=== PATIENT | male | born 1955 | race Caucasian/White ===

== ENCOUNTER 2022-05-25 08:35 | Outpatient (CLI) | payer MEDICARE ==
[2022-05-25] MEDS ORDERED: iohexoL-300 100 ML VIAL ONE (08:52)
[2022-05-25] MEDS: iohexoL-300 100 ML VIAL IVP ONE (09:15)
--- NOTE | 2022-05-25 10:23 | CT Report ---
PROCEDURE: CHEST W INDICATIONS: COUGH CONTRAST:omni 300 80ml TECHNIQUE: After the administration of intravenous contrast, 1 mm axial images were acquired from the pulmonary apices through the posterior costophrenic angles. Axial 5 mm soft tissue kernel reconstructions were performed as well as 8 mm axial MIP and coronal and sagittal 5 mm reformations. For radiation dose reduction, the following was used: automated exposure control, adjustment of mA and/or kV according to patient size. COMPARISON: None. FINDINGS: Image quality: Excellent. Lungs and pleura: There is a mild to moderate emphysematous changes noted throughout both lungs. I se e no evidence for focal lung infiltrate. There are some small 1 to 2 mm calcified and noncalcified pu lmonary nodular densities present on the right. Mediastinum: Heart size is normal. No pericardial effusion. No mediastinal or hilar adenopathy by size criteria. There are some calcified mediastinal lymph nodes suggesting prior granulomatous infect ion. Thoracic aorta and central pulmonary arteries are normal in size. Esophagus is normal in calib er. No hiatal hernia. There are coronary artery and atherosclerotic calcifications present. Bones and chest wall: No suspicious bony lesions. No vertebral body compression fractures. No axil jarrell or supraclavicular adenopathy by size criteria. There is a 3.8 cm low-attenuation nodule in the left aspect of the patient's thyroid gland. Recommend thyroid ultrasound for further evaluation. Abdomen: There is jzcg-un-wvhsdift diffuse fatty infiltration of the liver. There are gallstones pres ent within the patient's gallbladder. Remainder of the visualized portions of the upper abdominal vis cera appear within normal limits. Next IMPRESSION: 1. A small 1 to 2 mm calcified and noncalcified pulmonary nodular densities on the right. Recommend n oncontrast chest CT in approximately 1 year to evaluate for any significant change. 2. Bsyj-ko-bpjfhmnx emphysematous changes noted throughout both lungs. 3. 3.8 cm low-attenuation nodule in the left aspect of the patient's thyroid gland. Recommend thyroid ultrasound. 4. Drxy-kb-ktnjrpis diffuse fatty infiltration of the liver. 5. Cholelithiasis. 6. Coronary artery and atherosclerotic calcifications. 7. Small calcified mediastinal lymph nodes suggesting prior granulomatous infection. CLINICAL RECOMMENDATION STATEMENTS: In patients <35 years with an ITN detected on CT, MRI, or extrathyroidal ultrasound, the Committee re commends further evaluation with dedicated thyroid ultrasound if the nodule is "e1 cm and has no susp icious imaging features, and if the patient has normal life expectancy. In patients "e35 years with an ITN detected on CT, MRI, or extrathyroidal ultrasound, the Committee r ecommends further evaluation with dedicated thyroid ultrasound if the nodule is "e1.5 cm and has no s uspicious imaging features, and if the patient has normal life expectancy. (ACR, 2014) Reviewed by: Jaden Connolly MD on 05/25/2022 10:21 AM PDT Approved by: Jaden Connolly MD on 05/25/2022 10:21 AM PDT Station ID: [id number]
== END 2022-05-25 08:36 | disposition home or self-care (01) ==
LOC: DI 08:35
PROVIDERS: ATTEND Nurse Practitioner Family
DX: R05.9 Cough, unspecified (principal); R91.8 Other nonspecific abnormal finding of lung field; J43.9 Emphysema, unspecified; E04.1 Nontoxic single thyroid nodule; K76.0 Fatty (change of) liver, not elsewhere classified; K80.20 Calculus of gallbladder without cholecystitis without obstruction; I25.10 Atherosclerotic heart disease of native coronary artery without angina pectoris; I89.8 Other specified noninfective disorders of lymphatic vessels and lymph nodes
CPT/HCPCS: 71260; Q9967

== ENCOUNTER 2022-06-17 12:49 | Outpatient (CLI) | payer MEDICARE ==
--- NOTE | 2022-06-17 16:56 | XRAY Report ---
PROCEDURE: Hand 3 View LT INDICATIONS: PAIN IN LEFT HAND TECHNIQUE: 3 views of the hand(s) acquired. COMPARISON: None. FINDINGS: Bones: No acute fracture or dislocation. Polyarticular degenerative changes of the left hand involvi ng both the proximal and distal interphalangeal joints of all 5 fingers. Degenerative changes of the carpal bones most pronounced at the first carpal metacarpal joint. Apparent healed fracture deformiti es of the left fifth metacarpal secondary to presumed to remote trauma. No definite osseous erosions identified. Soft tissues: No suspicious soft tissue calcifications or masses. IMPRESSION: Left hand without acute fracture or dislocation. Polyarticular degenerative changes of the left hand and wrist. Reviewed by: Adam Espitia MD on 06/17/2022 4:55 PM PDT Approved by: Adam Espitia MD on 06/17/2022 4:55 PM PDT Station ID: [id number]
== END 2022-06-17 12:50 | disposition home or self-care (01) ==
LOC: DI 12:49
PROVIDERS: ATTEND Nurse Practitioner Family
DX: M19.042 Primary osteoarthritis, left hand (principal); M19.032 Primary osteoarthritis, left wrist; M18.12 Unilateral primary osteoarthritis of first carpometacarpal joint, left hand

== ENCOUNTER 2022-07-06 07:32 | Outpatient (CLI) | payer BC ==
--- NOTE | 2022-07-06 10:44 | Ultrasound Report ---
PROCEDURE: Head or Neck Soft Tissue INDICATIONS: THYROID DISORDER TECHNIQUE: Real-time scanning was performed of the thyroid gland, with image documentation. COMPARISON: Chest CT 05/25/2022 FINDINGS: Right: Thyroid lobe measures 4.4 x 1.3 x 1.5 cm, and is homogeneous in echotexture. Left: Thyroid lobe measures 6.2 x 3.2 x 2.1 cm, and is homogenous in echotexture. Isthmus: 6 mm thick. Nodule number: One Location: Right mid to lower pole Size: 3.2 x 3.2 x 3.0 cm. Composition: Solid. Echogenicity: Isoechoic. Shape: wider than tall. Margins: Smooth (0 points). Echogenic foci: None (0 points). Total points: 3 ACR TI-RADS category: Mildly suspicious (3 points). Nodule number: Two Location: Right midpole Size: 1.2 x 0.8 x 0.8 cm. Composition: Solid. Echogenicity: Hyperechoic. Shape: Taller than wide. Margins: Lobulated. Echogenic foci: Macrocalcification. Total points: 6 ACR TI-RADS category: Moderately suspicious (4-6 points). IMPRESSION: 1. There is a dominant right mid to lower pole solid thyroid nodule which meets size criteria for FNA . Per report, the patient has a history of FNA and prior records would be useful to avoid repeat FNA. 2. Moderately suspicious 1.2 cm right mid pole nodule with calcifications decreasing specificity eval uation. Follow-up in one year is recommended. ACR TI-RADS definitions and recommendations: TI-RADS 1 (benign): 0 points. FNA not needed. TI-RADS 2 (not suspicious): 2 points. FNA not needed. TI-RADS 3 (mildly suspicious): 3 points. "FNA if 2.5 cm or larger, follow up if 1.5 cm or larger (at 1, 3, and 5 years). TI-RADS 4 (moderately suspicious): 4-6 points. "FNA if 1.5 cm or larger, follow up if 1 cm or larger (at 1, 2, 3, and 5 years). TI-RADS 5 (highly suspicious): 7 points or more. "FNA if 1 cm or larger, follow up if 0.5 cm or larger (every year for 5 years). Reviewed by: Nica Little MD on 07/06/2022 10:42 AM PDT Approved by: Nica Little MD on 07/06/2022 10:42 AM PDT Station ID: [id number]
== END 2022-07-06 07:33 | disposition home or self-care (01) ==
LOC: DI 07:32
PROVIDERS: ATTEND Nurse Practitioner Family
DX: E04.2 Nontoxic multinodular goiter (principal)

== ENCOUNTER 2022-07-26 10:36 | Outpatient (CLI) | payer BC ==
[2022-07-26 10:48] LABS: BILIRUBIN,URINE NEGATIVE (NEGATIVE); GLUCOSE, URINE (UA) >=1000 mg/dL (NEGATIVE); KETONES,URINE (UA) TRACE mg/dL (NEGATIVE); LEUKOCYTE ESTERASE, URINE NEGATIVE (NEGATIVE); NITRITE,URINE NEGATIVE (NEGATIVE); OCCULT BLOOD,URINE LARGE (NEGATIVE); PROTEIN,URINE 30 mg/dL (NEGATIVE); UROBILINOGEN,URINE 0.2 (NORMAL) E.U./dL (NORMAL)
[2022-07-26 10:59] LABS: BACTERIA,URINE Few /HPF (None Seen); CLARITY,URINE SL. CLOUDY (CLEAR); RBC,URINE TNTC /HPF (0-5); SQUAMOUS EPITHELIAL CELL,UR NONE SEEN (<= Few)
== END 2022-07-26 10:37 | disposition home or self-care (01) ==
LOC: LAB 10:36
PROVIDERS: ATTEND Nurse Practitioner Family
DX: R30.0 Dysuria (principal)
CPT/HCPCS: 81001; 87086

== ENCOUNTER 2022-07-27 16:21 | Outpatient (CLI) | payer BC ==
--- NOTE | 2022-07-27 17:15 | CT Report ---
PROCEDURE: ABDOMEN/PELVIS WO INDICATIONS: UTI, DYSURIA TECHNIQUE: Noncontrast 5 mm thick sections acquired from the diaphragms to the symphysis. 5 mm coronal and sagi ttal reformats were then performed. For radiation dose reduction, the following was used: automated exposure control, adjustment of mA and/or kV according to patient size. COMPARISON: None. FINDINGS: Image quality: Excellent. Lung bases and heart: At least moderate coronary artery calcifications. Otherwise unremarkable. Liver: Moderate diffuse hepatic steatosis. Gallbladder and biliary tree: 1.6 cm gallbladder neck stone. No gallbladder wall thickening. No gallb ladder distention. Spleen: No splenomegaly. Splenic calcifications suggest chronic granulomatous disease. Pancreas: No pancreatic ductal dilation. Adrenals: No adrenal nodule. Kidneys and ureters: No hydronephrosis. No renal cystic lesion which requires follow up. No solid mas s. Bowel and peritoneum: No bowel distension. No pathologic free fluid. Diverticulosis without evidence of diverticulitis. Lymph nodes: No central or retroperitoneal adenopathy. Vessels: No infrarenal aortic aneurysm. Infrarenal aortic atherosclerotic calcifications and iliac an d femoral calcifications. There is either a calcified high-grade stenosis or occlusion of the right c ommon iliac artery. There is a probable hemodynamically significant stenosis of the proximal left com mon iliac artery. There is either high grade calcified stenosis or occlusion of the proximal left ext ernal iliac artery. PELVIS Reproductive organs: Unremarkable. Bladder: Mild diffuse bladder wall thickening. Pelvic lymph nodes: No pelvic adenopathy by size criteria. Bones: No aggressive osseous abnormality. Other: No significant ventral or inguinal hernia. IMPRESSION: 1. No renal stone, ureteral stone, or hydronephrosis. 2. Mild diffuse bladder wall thickening. 3. Moderate diffuse hepatic steatosis. 4. Cholelithiasis. 5. Significant peripheral vascular disease with high-grade proximal right common iliac artery stenosi s or occlusion, hemodynamically significant proximal left common iliac artery stenosis, and high-grad e focal calcified stenosis or occlusion of the proximal left external iliac artery. Comment: If the patient is an active individual, he may potentially benefit from endovascular therapy to treat his aortoiliac disease. Reviewed by: Baljeet Gutierrez MD on 07/27/2022 5:14 PM PDT Approved by: Baljeet Gutierrez MD on 07/27/2022 5:14 PM PDT Station ID: [id number]
== END 2022-07-27 16:22 | disposition home or self-care (01) ==
LOC: DI 16:21
PROVIDERS: ATTEND Nurse Practitioner Family
DX: N39.0 Urinary tract infection, site not specified (principal); R31.9 Hematuria, unspecified; R30.0 Dysuria; K76.0 Fatty (change of) liver, not elsewhere classified; K80.20 Calculus of gallbladder without cholecystitis without obstruction

== ENCOUNTER 2022-08-18 14:17 | Outpatient (CLI) | payer BC, MEDICARE ==
--- NOTE | 2022-08-18 16:49 | Ultrasound Report ---
PROCEDURE: Duplex Lwr Ext Arterial Bilat INDICATIONS: ATHEROSCLEROSIS OF OTHER ARTERIES TECHNIQUE: Color and pulse Doppler interrogation was performed of both lower extremity arterial systems, with im age documentation. COMPARISON: None FINDINGS: Right lower extremity: Common femoral artery: 63 cm/sec, with triphasic flow. Deep femoral artery: 49 cm/sec, with triphasic flow. Proximal superficial femoral artery: 75 cm/sec, with biphasic flow. Mid superficial femoral artery: 58 cm/sec, with triphasic flow. Distal superficial femoral artery: 47 cm/sec, with triphasic flow. Popliteal artery: 21 cm/sec, with biphasic flow. Posterior tibial artery: 59 cm/sec, with biphasic flow. Anterior tibial artery/dorsalis pedis: 32 cm/sec, with triphasic flow. Paul-scale imaging description: Moderate calcific plaque Ankle-brachial index: 0.7 Left lower extremity: Common femoral artery: 104 cm/sec, with triphasic flow. Deep femoral artery: 53 cm/sec, with triphasic flow. Proximal superficial femoral artery: 68 cm/sec, with triphasic flow. Mid superficial femoral artery: 72 cm/sec, with triphasic flow. Distal superficial femoral artery: 54 cm/sec, with triphasic flow. Popliteal artery: 42 cm/sec, with bifid flow. Posterior tibial artery: 55 cm/sec, with triphasic flow. Anterior tibial artery/dorsalis pedis: 31 cm/sec, with biphasic flow. Paul-scale imaging description: Moderate calcific plaque Ankle-brachial index: 0.6 IMPRESSION: 1. Doppler imaging demonstrates no evidence of hematoma intimately significant stenosis to the lower extremities. 2. Ankle brachial indices indicate moderate disease bilaterally. 3. MR angiography runoff evaluation is recommended for further assessment. Reviewed by: Meena Ortega MD on 08/18/2022 4:48 PM PDT Approved by: Meena Ortega MD on 08/18/2022 4:48 PM PDT Station ID: [id number]
--- NOTE | 2022-08-18 16:59 | Ultrasound Report ---
PROCEDURE: Ankle Brachial Index INDICATIONS: ATHEROSCLEROSIS OF OTHER ARTERIES TECHNIQUE: Ankle-brachial indices were obtained bilaterally and recorded. COMPARISONS: None. FINDINGS: Right ankle brachial index (RUBIO): 0.71 Left ankle brachial index (RUBIO): 0.64 IMPRESSION: RUBIO in the range of 0.5-0.8 bilaterally, consistent with moderate peripheral arterial disease. Recomm end referral to interventional radiology for evaluation/treatment. Reviewed by: Zee Hogue MD on 08/18/2022 4:57 PM PDT Approved by: Zee Hogue MD on 08/18/2022 4:57 PM PDT Station ID: [id number]
== END 2022-08-18 14:18 | disposition home or self-care (01) ==
LOC: DI 14:17
PROVIDERS: ATTEND Nurse Practitioner Family
DX: I70.203 Unspecified atherosclerosis of native arteries of extremities, bilateral legs (principal)
CPT/HCPCS: 93922; 93925

== ENCOUNTER 2023-02-13 12:19 | Outpatient (CLI) | payer BC, MEDICARE ==
[2023-02-13 12:44] LABS: GLUCOSE, URINE (UA) >=1000 mg/dL (NEGATIVE); KETONES,URINE (UA) TRACE mg/dL (NEGATIVE); LEUKOCYTE ESTERASE, URINE TRACE (NEGATIVE); NITRITE,URINE NEGATIVE (NEGATIVE); OCCULT BLOOD,URINE LARGE (NEGATIVE); PROTEIN,URINE >=300 mg/dL (NEGATIVE); UROBILINOGEN,URINE 0.2 (NORMAL) E.U./dL (NORMAL)
[2023-02-13 12:45] LABS: CLARITY,URINE CLOUDY (CLEAR)
[2023-02-13 12:48] LABS: BILIRUBIN,URINE NEGATIVE (NEGATIVE); ICTOTEST,URINE NEGATIVE
[2023-02-13 12:57] LABS: BACTERIA,URINE Few /HPF (None Seen); RBC,URINE TNTC /HPF (0-5); SQUAMOUS EPITHELIAL CELL,UR RARE Squamous (<= Few); WBC,URINE 0-3 /HPF (0-3)
== END 2023-02-13 12:20 | disposition home or self-care (01) ==
LOC: LAB.R 12:19
PROVIDERS: ATTEND Nurse Practitioner Family
DX: R30.0 Dysuria (principal)
CPT/HCPCS: 81001; 87077; 87086